=== PATIENT | female | born 1945 | race Caucasian/White ===

== ENCOUNTER → 2018-07-28 10:20 | Outpatient (CLI) | payer OTHER, SELFPAY ==
[2018-07-28 12:05] LABS: Add Manual Diff / Slide Review NO; Basophils Percent Auto 0.4 % (0-2); Eosinophils Percent Auto 2.2 % (2-4); Hematocrit 37.4 % (36-46); Hemoglobin 12.1 g/dL (12.0-16.0); Lymphocytes Percent Auto 25.2 % (25-40); Mean Corpuscular HGB Conc 32.3 % (30-36); Mean Corpuscular Volume 86.6 fL (80-100); Monocytes Percent Auto 10.3 % (3-14); Neutrophils Absolute Auto 3600 /uL (1500-7000); Neutrophils Percent Auto 61.9 % (50-75); Platelet Count 254 X10^3/uL (150-400); Red Blood Cell Count 4.32 X10^6/uL (4.0-5.2); Red Cell Distribution Width 13.4 % (11.6-14.8); White Blood Cell Count 5.7 X10^3/uL (4.5-11.0)
[2018-07-28 13:17] LABS: Alanine Aminotransferase 29 IU/L (9-52); Albumin 4.1 g/dL (3.5-5.0); Albumin Globulin Ratio 1.5 (1.0-2.8); Alkaline Phosphatase 103 U/L (38-126); Aspartate Aminotransferase 19 IU/L (14-36); BUN Creatinine Ratio 17.5 (6-22); Bilirubin Total 0.7 mg/dL (0.2-1.3); Blood Urea Nitrogen 14 mg/dL (7-17); Calcium 9.2 mg/dL (8.4-10.2); Carbon Dioxide 25 mmol/L (22-32); Chloride 105 mmol/L (98-107); Cholesterol 150 mg/dL (140-199); Estimated Glomerular Filt Rate > 60.0 mL/min (>60); Globulin 2.7 g/dL (1.7-4.1); Glucose 87 mg/dL (80-110); HDL Cholesterol 61 mg/dL (40-60); HEMOLYSIS < 15 (0-50); LDL Cholesterol Calculated 74 mg/dL (<100); Potassium 4.4 mmol/L (3.4-5.1); Sodium 144 mmol/L (137-145); Total Protein 6.8 g/dL (6.3-8.2); Triglycerides 75 mg/dL (35-150)
[2018-07-28 15:17] LABS: TSH w/ Reflex to FT4 1.24 uIU/mL (0.47-4.68)
== END ==
PROVIDERS: Family Provider Family Medicine; PCP Family Medicine; Visit Provider Family Medicine
DX: E03.9 Hypothyroidism, unspecified (principal)
CPT/HCPCS: 36415; 80053; 80061; 84443; 85025

== ENCOUNTER → 2018-08-10 10:05 | Outpatient (CLI) | payer OTHER, SELFPAY ==
--- NOTE | 2018-08-10 10:06 | DI.RAD.S_ITS ---
PROCEDURE: FL BARIUM SWALLOW INDICATIONS: dysphagia COMPARISON: None. FINDINGS: Function: There is normal esophageal peristalsis proximally but mild to moderate tertiary contractions were seen in the distal third of the esophagus. There was mild spontaneous and elicited gastroesophageal reflux. There is abnormally delayed transit of a calibrated barium tablet through the esophagus into the stomach, remaining impacted at a point of relative stricture at the distal esophagus above a small to moderate sized sliding hiatal hernia. Morphology: Air-contrast images demonstrate normal mucosal morphology, without evidence of nodularity masses at the distal esophagus. Single contrast views show a definite fixed distal esophageal stricture, site of barium tablet impaction, and no extrinsic mass effects or diverticula. Limited images of the stomach demonstrate normal appearance. IMPRESSION: There is a small to moderate sized sliding hiatal hernia with associated spontaneous and elicited gastroesophageal reflux relatively mild in severity. This is associated with presence of a fixed distal esophageal stricture, mild in severity, which resulted in impaction of a 13 mm calibrated barium tablet for over 5 minutes during observation at the termination of the study. Endoscopy is recommended both for consideration of balloon dilatation of the distal esophageal stricture and to more accurately assess for dysplasia or metaplasia. Dictated by: Mian Jorge M.D. on 08/10/2018 at 11:24 Approved by: Mian Jorge M.D. on 08/10/2018 at 11:27
== END ==
PROVIDERS: PCP Family Medicine; Visit Provider Family Medicine
DX: K22.2 Esophageal obstruction (principal); R13.10 Dysphagia, unspecified; K21.9 Gastro-esophageal reflux disease without esophagitis; K44.9 Diaphragmatic hernia without obstruction or gangrene
CPT/HCPCS: 74220

== ENCOUNTER → 2018-09-26 10:57 | Outpatient (CLI) | payer OTHER, SELFPAY ==
--- NOTE | 2018-09-26 | DI.MG.S_ITS ---
BILATERAL DIGITAL SCREENING MAMMOGRAM 3D/2D WITH CAD: 09/26/2018 CLINICAL: Routine screening. Family history of breast cancer. Comparison is made to exams dated: 09/23/2017 mammogram, 09/13/2017 mammogram, and 08/13/2016 mammogram - [facility]. There are scattered fibroglandular elements in both breasts. Current study was also evaluated with a Computer Aided Detection (CAD) system. There is a 7 mm oval mass in the right breast anterior depth central to the nipple seen on the mediolateral oblique view only. No other significant masses, calcifications, or other findings are seen in either breast. IMPRESSION: INCOMPLETE: NEEDS ADDITIONAL IMAGING EVALUATION The 7 mm oval mass in the right breast is indeterminate. A diagnostic mammogram and ultrasound is recommended. This exam was interpreted at Station ID: [id number]. NOTE: For mammograms, a report in lay terms will be sent to the patient. Approximately 15% of breast malignancies will not be visualized mammographically. In the management of a palpable breast mass, a negative mammogram must not discourage biopsy of a clinically suspicious lesion. Electronically Signed By: Nadia perales/jaydon:09/28/2018 09:40:37 letter sent: Additional Imaging Needed ACR BI-RADS Category 0: Incomplete 3340F
== END ==
PROVIDERS: PCP Family Medicine; Visit Provider Family Medicine
DX: Z12.31 Encounter for screening mammogram for malignant neoplasm of breast (principal); Z80.3 Family history of malignant neoplasm of breast
CPT/HCPCS: 77063; 77067

== ENCOUNTER 2018-09-27 07:50 | Day surgery (SDC) | payer OTHER, SELFPAY ==
[2018-09-27] VITALS (7 sets, daily range): BP systolic 100–124; BP diastolic 64–74; PULSE 71–88; RESP 12–17; TEMP 36.4–36.7; O2SAT 92–98; BMI 31.2
--- NOTE | 2018-09-27 | PATH_ITS ---
[facility] Accession Number: [id number] . 01 Material submitted: . PART A: ANTRUM BIOPSIES PART B: GASTRIC MUCOSA BELOW THE GE JUNCTION PART C: SCHATZKI RING BIOPSIES . 02 Diagnosis: A. Stomach, Antrum, Biopsies: Helicobacter pylori gastritis. Negative for intestinal metaplasia. Negative for dysplasia and malignancy. . B. Stomach, Mucosa Below GE Junction, Biopsy: Squamocolumnar junctional mucosa and columnar mucosa with chronic active inflammation and intestinal metaplasia. Negative for dysplasia and malignancy. . C. Esophagus, Biopsies: Squamous mucosa with erosion and reflux-related changes. Intraepithelial eosinophils are not increased. Negative for dysplasia and malignancy. [facility]/09/28/2018 . 02 Comment: B. The presence of inestinal metaplasia could be compatible with Wu's esophagus, in the appropriate endoscopic setting. . 02 Electronically signed: . Dari Valencia MD, Pathologist NPI- [id number] . 01 Gross description: . Received three formalin-filled containers each labeled with the patient's name. . A. In a container labeled antrum are four 0.1 to 0.4 cm portions of tissue. Entirely submitted in cassette A. B. In a container labeled gastric mucosa below the GE junction are four less than 0.1 to 0.3 cm portions of tissue. Entirely submitted in cassette B. C. In a container labeled Schatzki ring are three less than 0.1 to 0.2 cm portions of tissue. Entirely submitted in cassette C. ([facility]:[id number]) /[facility] . 02 Pathologist provided ICD-10: R10.9, B96.81 . 02 CPT . 377847, 079635, 010542 Performed at: [address] [place] [address] [address], [place], [place] [id number] MD Hilario Adame MD Phone: [phone] Performed at: [id number] [place] [id number] MD Dari Valencia MD Phone: [phone]
[2018-09-27] MEDS: SODIUM CHLORIDE 0.9% 1,000 ML 200 ML IV (08:20)
--- NOTE | 2018-09-27 09:00 | PM.PREOP ---
Pre-operative Note Interval Note History & Physical reviewed/Exam performed by Physician: Yes Changes to H&P: No ASA Class (for procedural sedation): I
[2018-09-27] MEDS: TETRACAINE/BENZOCAINE/BUTAMBEN (CETACAINE) BOTTLE 1 SPRAY TOP (09:06)
[2018-09-27] MEDS: LIDOCAINE 4% SOLN 50 ML 20 ML TOP (09:07)
--- NOTE | 2018-09-27 09:25 | SUR.OPER ---
Balloon dilation up to 15mm
--- NOTE | 2018-09-27 09:29 | PM.OP.ENDO ---
Operative Date/Time/Diagnoses Date of procedure: 09/27/18 Time of procedure: 09:29 Pre-op diagnosis: Abnormal upper GI with stricture of the distal esophagus Post-op diagnosis: same (With a Schatzki ring. Multiple antral and healing duodenal ulcers. Hiatal hernia.) Procedure & Clinicians Study performed: EGD with cold biopsy and through the scope balloon dilatation to 15 mm diameter Same procedure as scheduled: Yes Indications: Abnormal upper GI Surgeon: Bandar Leon Procedure Notes SCOAP/Timeout: Performed Procedure in detail: The patient was placed in left lateral decubitus position after having topical anesthetic applied to oropharynx. Bite block was inserted she was sedated. Scope was advanced through the bite block into the esophagus. The esophagus was somewhat tortuous especially distal. There was an obvious Schatzki ring with some narrowing but the scope passed easily through it. There was a hiatal hernia about 3 cm to 4 cm in length. There was a small linear ulceration in the gastric wall just below this. Additionally, there were multiple ulcerations in the gastric antrum that appeared to be healing. The pyloric channel was patent. There was a very superficial ulceration that appeared to be healing in the duodenal bulb. The 2nd 3rd and 4th parts of the duodenum were unremarkable. The scope was brought back into the stomach and retroflexed. The hiatal hernia was poorly visible from below. Multiple biopsies were taken of the antrum to include 1 or 2 the healing ulcers. Biopsies were then taken of the inflamed areas below the GE junction. Finally biopsies were taken of the Schatzki ring. This was at the GE junction located at about 3 3 cm from the incisors. A 12-15 mm balloon was then passed through the scope and the narrowing dilated. The 12 mm did not engage the fabian but the 13.5 and the 15 did. I chose not to dilate further. The scope was removed and the patient tolerated the procedure well. Scope withdrawal time: Not applicable Sedation minutes: 21 Findings: duodenal ulcer, gastric ulcer and hiatal hernia Specimen(s): other (Antral, gastric below the GE junction, I had GE junction at the Schatzki ring.) Complications: none Recommendations: Start medication(s) (Proton pump inhibitor) Follow up: weeks (2-4) Disposition: PACU
[2018-09-27] MEDS: MIDAZOLAM 5 MG/5 ML VIAL IV (09:30)
--- NOTE | 2018-09-27 09:57 | SUR.PHASEI ---
stable pacu stay
--- NOTE | 2018-09-27 10:38 | SUR.PHASEII ---
Jean Claude brought in, d/c instructions discussed with both, both voiced an understanding, pt left when ready and left in stable condition.
== END 2018-09-27 10:40 | disposition home or self-care (01) ==
PROVIDERS: PCP Family Medicine; Visit Provider Specialist
PROC: 0DJ08ZZ Inspection of Upper Intestinal Tract, Via Natural or Artificial Opening Endoscopic (ICD-10-PCS; CPT 43235; principal; 2018-09-27 08:45)
DX: K22.2 Esophageal obstruction (principal); K44.9 Diaphragmatic hernia without obstruction or gangrene; K25.9 Gastric ulcer, unspecified as acute or chronic, without hemorrhage or perforation; K26.9 Duodenal ulcer, unspecified as acute or chronic, without hemorrhage or perforation; K29.70 Gastritis, unspecified, without bleeding; B96.81 Helicobacter pylori [H. pylori] as the cause of diseases classified elsewhere
CPT/HCPCS: 43249; 43239; 99152; J2250

== ENCOUNTER → 2018-10-11 13:03 | Outpatient (CLI) | payer OTHER, SELFPAY ==
--- NOTE | 2018-10-11 13:05 | DI.MG.S_ITS ---
UNILATERAL RIGHT DIGITAL DIAGNOSTIC MAMMOGRAM 3D/2D WITH ADDITIONAL VIEWS: 10/11/2018 CLINICAL: Additional evaluation requested from prior study. Family history of breast cancer. Comparison is made to exams dated: 09/26/2018 mammogram, 09/23/2017 mammogram, 09/13/2017 mammogram, and 08/13/2016 mammogram - [facility]. There are scattered fibroglandular elements in right breast. The 7 mm oval asymmetry in the right breast anterior depth central to the nipple seen on the mediolateral oblique view only is no longer seen. No other significant masses or calcifications are seen in the breast. IMPRESSION: There is no mammographic evidence of malignancy. A 1 year screening mammogram is recommended. This exam was interpreted at Station ID: [id number]. NOTE: For mammograms, a report in lay terms will be sent to the patient. Approximately 15% of breast malignancies will not be visualized mammographically. In the management of a palpable breast mass, a negative mammogram must not discourage biopsy of a clinically suspicious lesion. Electronically Signed By: Steffi rader/:10/11/2018 13:45:54 letter sent: Normal Exam ACR BI-RADS Category 2: Benign Finding(s) 3342F
== END ==
PROVIDERS: PCP Family Medicine; Visit Provider Family Medicine
DX: R92.8 Other abnormal and inconclusive findings on diagnostic imaging of breast (principal); Z80.3 Family history of malignant neoplasm of breast
CPT/HCPCS: 77065; G0279

== ENCOUNTER 2018-12-15 11:23 | Emergency (ER) | payer OTHER, SELFPAY ==
[2018-12-15 11:32] VITALS: BP 133/79; PULSE 74; RESP 16; TEMP 36.4; O2SAT 98
--- NOTE | 2018-12-15 12:15 | ED.EXTPRO ---
HPI - Extremity Problem <SAUD Solorio-BC - Last Filed: 12/15/18 13:06> General Chief complaint: Extremity Problem,Nontraumatic Stated complaint: right leg is swollen a little bit Time Seen by Provider: 12/15/18 12:05 Source: patient and family Mode of arrival: ambulatory Limitations: no limitations History of Present Illness HPI Narrative: The patient is a 73-year-old female nonsmoker presents with her who presents with a chief complaint of right leg pain and swelling for the past week. She states it is bad enough that somebody in yoga class noticed it today and told her she should be concerned about a blood clot. She denies any trauma, recent surgical procedures other than endoscope, history of blood clots, recent travel or immobility. She does have a history of hypothyroid GERD and hyperlipidemia. She denies any shortness of breath, chest pain, nausea vomiting diarrhea abdominal pain. Related Data Home Medications Medication Instructions Recorded Confirmed calcium citrate-vitamin D3 1,260 tab PO DAILY #0 04/12/13 12/15/18 [Calcitrate-Vitamin D] Previous Rx's Medication Instructions Recorded atorvastatin 10 mg tablet 10 mg PO HS #90 tab 08/05/18 levothyroxine 50 mcg tablet 50 mcg PO QDAY@0600 #90 tab 08/05/18 omeprazole 20 mg PO BID #60 cap 09/27/18 Allergies Allergy/AdvReac Type Severity Reaction Status Date / Time No Known Drug Allergies Allergy Verified 12/15/18 12:20 Review of Systems <AMADEO Solorio - Last Filed: 12/15/18 13:06> Review of Systems GENERAL: Denies chills, fatigue, malaise, fever, sweats. HEENT: Denies sinus pain, ear pain, sore throat, difficulty swallowing, dizziness. RESPIRATORY: Denies dyspnea, cough, wheezing, hemoptysis, sputum. CARDIOVASCULAR: Denies chest pain, palpitations, orthopnea, edema, GASTROINTESTINAL: Denies nausea, vomiting, abdominal pain, diarrhea, constipation, melena. : Denies dysuria, frequency, incontinence, hematuria, urinary retention. MUSCULOSKELETAL: See HPI SKIN: See HPI NEUROLOGIC: Denies weakness, headache, numbness, change in speech, confusion, seizures, incoordination. PSYCHIATRIC: No concerning psychosocial issues. 12 point review of systems is negative except for those stated above PFSH <HE Solorio - Last Filed: 12/15/18 13:06> Social History marital status: household members: spouse Smoking Status: Never smoker alcohol intake: current Exam <HE Solorio - Last Filed: 12/15/18 13:06> Narrative Exam Narrative: GENERAL: This is a well-nourished, well-developed patient, lying on stretcher in no acute distress HEAD: Atraumatic. Normocephalic. No temporal or scalp tenderness. EYES: Pupils equal round and reactive. Extraocular motions intact. No scleral icterus. No injection or drainage. CARDIOVASCULAR: Regular rate and rhythm RESPIRATORY: Clear to auscultation. Breath sounds equal bilaterally. No wheezes, rales, or rhonchi. No cough. No increased respiratory effort. GASTROINTESTINAL: Abdomen soft, non-tender, nondistended. No hepato-splenomegaly, or palpable masses. No guarding. EXTREMITIES: General pain to palpation right calf. Positive pedal pulses right foot. Slight generalized edema right lower leg. BACK: Nontender without deformity or crepitance. No flank tenderness. NEURO: AOx3. SKIN: No erythema ecchymosis or wound noted right leg. Initial Vital Signs Initial Vital Signs: Vital Signs Temperature 97.6 F 12/15/18 11:32 Pulse Rate 74 12/15/18 11:32 Respiratory Rate 16 12/15/18 11:32 Blood Pressure 133/79 12/15/18 11:32 Pulse Oximetry 98 12/15/18 11:32 <Dontae Goldman DO - Last Filed: 12/15/18 18:29> Initial Vital Signs Initial Vital Signs: Vital Signs Temperature 97.6 F 12/15/18 11:32 Pulse Rate 74 12/15/18 11:32 Respiratory Rate 16 12/15/18 11:32 Blood Pressure 133/79 12/15/18 11:32 Pulse Oximetry 98 12/15/18 11:32 Course <HE Solorio - Last Filed: 12/15/18 13:06> Orders Ordered: ED Orders 12/15/18 12:14 US periph venous low extrem rt Stat Vital Signs - 8 hr 12/15/18 11:32 12/15/18 13:12 Temperature 97.6 F Pulse Rate 74 71 Respiratory Rate 16 17 Blood Pressure 133/79 122/73 Pulse Oximetry 98 98 <Dontae Goldman DO - Last Filed: 12/15/18 18:29> Orders Ordered: ED Orders 12/15/18 12:14 US periph venous low extrem rt Stat Vital Signs - 8 hr 12/15/18 11:32 12/15/18 13:12 Temperature 97.6 F Pulse Rate 74 71 Respiratory Rate 16 17 Blood Pressure 133/79 122/73 Pulse Oximetry 98 98 MDM - Extremity (Nontraumatic) <HE Solorio - Last Filed: 12/15/18 13:06> Imaging Data Venous US: Radiologist's impression: Aileen Mcleod 73 F [address] [address] Ultrasound Report Signed Patient: Aileen Mcleod LMR#: [id number] : 1945cct:[id number] Age/Sex: 73 / FDate of Service: 12/15/18 Loc: ED Accession Number: [id number] Procedure: US periph venous low extrem rt Ordering Provider: Stacie Castillo PROCEDURE: US PERIPH VENOUS LOW EXTREM RT INDICATIONS: RIGHT LEG EDEMA TECHNIQUE: Real-time imaging, as well as color and pulse Doppler interrogation, were performed of the lower extremity deep veins from the inguinal ligament to the popliteal fossa. COMPARISON: None. FINDINGS: The common femoral, femoral and popliteal veins are normally compressible, and free of intraluminal thrombus. Color and pulse Doppler demonstrate normal phasic intraluminal flow. There is normal augmentation response to distal compression maneuver. IMPRESSION: No deep vein thrombosis of the right lower extremity. Dictated by: Steffi Shea M.D. on 12/15/2018 at 12:43 Approved by: Steffi Shea M.D. on 12/15/2018 at 12:43 [facility] Narrative Medical decision making narrative: The patient is a 73-year-old female presents with isolated right lower leg swelling and pain. She is concerned about a blood clot. She has low risk factors and a negative ultrasound. We discussed pros and cons of x-ray, which she does not think his partner at this point time given no trauma. I discussed at length return precautions including chest pain and shortness of breath. I encouraged the patient to follow up with primary care provider especially if worsening or no improvement. Patient and had questions or concerns upon discharge. Discharge Plan Departure Patient Disposition: Home Clinical Impression: Leg pain, right Discharge Date/Time: 12/15/18 13:13 Interventions: ED Discharge Assessment Last Done: 12/15/18 13:12 Instructions: How To Perform RICE (Rest, Ice, Compress, Elevate), DI for Leg Pain Activity Restrictions/Additional Instructions: Your ultrasound shows no blood clot. Please follow up with primary care provider if he continued to have pain and swelling in her leg. Please try [id number] pain medications as needed as well as rest ice compression elevation. I would take a few days off of yoga to see if that helps. Try elevating your legs as needed. Please follow up with primary care provider in a few days. Please come back to emergency department for any acute concerns that his chest pain, shortness of breath, concern of stroke and heart attack. Prescriptions: No Action calcium citrate-vitamin D3 [Calcitrate-Vitamin D] 315-250 mg-unit Tablet 1,260 tab PO DAILY Qty: 0 RF: 0 levothyroxine [Synthroid] 50 mcg tablet 50 mcg PO QDAY@0600 Qty: 90 RF: 0 atorvastatin [Lipitor] 10 mg tablet 10 mg PO HS Qty: 90 RF: 3 omeprazole 20 mg capsule,delayed release(DR/EC) 20 mg PO BID Qty: 60 RF: 4 Referrals: Nestor Cornelius MD [Primary Care Provider] - <Dontae Goldman DO - Last Filed: 12/15/18 18:29> [facility]w Attestation: I was immediately available in the department for consultation. Documentation has been reviewed. I agree with assessment and plan. l
[2018-12-15 13:12] VITALS: BP 122/73; PULSE 71; RESP 17; O2SAT 98
== END 2018-12-15 13:13 | disposition home or self-care (01) ==
PROVIDERS: Emergency Provider Nurse Practitioner Family; PCP Family Medicine
DX: M79.604 Pain in right leg (principal); R60.9 Edema, unspecified
CPT/HCPCS: 93971; 99282; 99283

== ENCOUNTER 2019-01-10 07:29 | Day surgery (SDC) | payer OTHER, SELFPAY ==
--- NOTE | 2019-01-10 | PATH_ITS ---
[facility] Accession Number: [id number] . 01 Material submitted: . PART A: hernia - BIOPSY IN HIATAL HERNIA PART B: esophagus, E-G Junction - GE JUNCTION . 02 Diagnosis: A. Hiatal Hernia, Biopsy: Squamocolumnar junctional mucosa with mild chronic inflammation. Negative for intestinal metaplasia. Negative for dysplasia and malignancy. . B. Gastroesophageal Junction, Biopsy: Squamocolumnar junctional mucosa with specialized intestinal metaplasia, consistent with Wu's esophagus. Negative for dysplasia and malignancy. [facility]/01/11/2019 . 02 Electronically signed: . Dari Valencia MD, Pathologist NPI- [id number] . 01 Gross description: . Part A: BIOPSY IN HIATAL HERNIA: Received in formalin are 3 fragment(s) of briceno, soft tissue measuring 0.1 x 0.1 x 0.1 cm to 0.2 x 0.2 x 0.2 cm which is entirely submitted and submitted entirely in 1 cassette(s) Part B: GE JUNCTION: Received in formalin are 3 fragment(s) of briceno, soft tissue measuring 0.1 x 0.1 x 0.1 cm to 0.3 x 0.2 x 0.2 cm which is entirely submitted and submitted entirely in 1 cassette(s) /[facility] /[facility] . 02 Pathologist provided ICD-10: K22.70 . 02 CPT . 220742, [id number] Performed at: [facility] [address], [place], [place] [id number] MD Hilario Adame MD Phone: [phone] Performed at: [facility] [place] [address] [place], [place] [id number] MD Dari Valencia MD Phone: [phone]
[2019-01-10 07:52] VITALS: BP 131/78; PULSE 85; RESP 15; TEMP 36.6; O2SAT 98; BMI 31.1
[2019-01-10] MEDS: SODIUM CHLORIDE 0.9% 1,000 ML 200 ML IV (08:09)
--- NOTE | 2019-01-10 08:45 | PM.HP.1 ---
History of Present Illness Date Patient Seen: 01/10/19 Time Patient Seen: 08:46 Chief complaint: [id number] Narrative: The patient is a woman who has had gastric ulcers diagnosed in the past. She is here to make sure those ulcers have healed. She has been taking omeprazole twice a day. Patient History Medical History GERD (gastroesophageal reflux disease) (Acute) Hyperlipidemia (Acute) Hypothyroidism (Chronic ~1984) Kidney stones (Chronic ~2002) Osteopenia (Chronic) Surgical History Anesthesia (Resolved) History of lithotripsy (~2002) History of thyroidectomy (~1984) Status post hysterectomy (~1988) Family History Father Heart disease Hypertension Grandmother Breast cancer Mother Cancer Diabetes mellitus Breast cancer Grandfather No problems noted. Social History marital status: household members: spouse Smoking Status: Never smoker alcohol intake: current Family & Social History Family History Father Heart disease Hypertension Grandmother Breast cancer Mother Cancer Diabetes mellitus Breast cancer Grandfather No problems noted. Social History: household members spouse Tobacco & Substance use: Smoking Status Never smoker alcohol intake current alcohol intake frequency holiday/special occasion Substance Use Type does not use Meds Home Medications Medication Instructions Recorded Confirmed Type calcium citrate-vitamin D3 1,260 tab PO DAILY #0 04/12/13 01/10/19 History [Calcitrate-Vitamin D] atorvastatin 10 mg tablet 10 mg PO HS #90 tab 08/05/18 01/10/19 Rx levothyroxine 50 mcg tablet 50 mcg PO QDAY@0600 #90 tab 08/05/18 01/10/19 Rx omeprazole 20 mg PO BID #60 cap 09/27/18 01/10/19 Rx Allergies Allergy/AdvReac Type Severity Reaction Status Date / Time No Known Drug Allergies Allergy Verified 12/15/18 12:20 Review of Systems Review of Systems All systems reviewed & are unremarkable except as noted in HPI and below Gastrointestinal Comments: Chronic reflux disease Endocrine Comments: Hypothyroid Exam Vital Signs (past 8 hours): - 01/10/19 07:52 Temperature 97.9 F Pulse Rate 85 Respiratory Rate 15 Blood Pressure 131/78 Pulse Oximetry 98 Oxygen Delivery Method Room Air Narrative Exam Narrative: Pleasant cooperative patient no apparent distress. Lungs are clear to auscultation. No rales or rhonchi. Heart regular rate and rhythm no murmur gallop. Abdomen is soft nontender without mass. No obvious hernias. Patient is alert and oriented x3. Assessment & Plan Assessment & Plan narrative: Patient for an EGD. I discussed the procedure with her. Risks of bleeding and perforation discussed. She appears to understand wishes to proceed
--- NOTE | 2019-01-10 08:47 | PM.PREOP ---
Pre-operative Note Interval Note History & Physical reviewed/Exam performed by Physician: Yes Changes to H&P: No ASA Class (for procedural sedation): II
[2019-01-10] MEDS: LIDOCAINE 4% SOLN 50 ML 20 ML TOP (09:13)
--- NOTE | 2019-01-10 09:13 | PM.OP.ENDO ---
Operative Date/Time/Diagnoses Date of procedure: 01/10/19 Time of procedure: 09:13 Pre-op diagnosis: History of gastric ulcers Post-op diagnosis: same (Ulcers appeared to be healed. Patient has evidence of Wu's esophagus. Biopsies taken.) Procedure & Clinicians Study performed: EGD with cold biopsy Same procedure as scheduled: Yes Indications: History of gastric ulcers. Post treatment Surgeon: Bandar Leon Procedure Notes SCOAP/Timeout: Performed Procedure in detail: The patient had topical anesthetic applied to oropharynx. She was placed in left lateral decubitus position and underwent IV sedation directed by the surgeon consisting of fentanyl and Versed. A bite block was inserted and the scope was advanced through it into the esophagus. The esophagus was unremarkable. GE junction was noted at 32 cm from the incisors. There was a hiatal hernia.. The stomach insufflated well. There were no lesions seen in the body, antrum or at the incisura. The pyloric channel was patent. The duodenum was unremarkable to the 4th part. The scope was brought back into the stomach and retroflexed. The proximal stomach normal except for visible hiatal hernia. The scope was straightened and brought out through the esophagus again. The hiatal hernia measured about 3 cm. No lesions were seen In the hernia itself. However there was evidence at the GE junction of Wu's esophagus with red tongues of tissue coming above the GE junction. Just below the GE junction there were flaps of tissue which I biopsied. Then I biopsied the area at the junction including some of the streaks of red tissue. The scope was removed and the patient tolerated the procedure well. Scope withdrawal time: Not applicable Sedation minutes: 13 Findings: Wu's esophagus (Possible. Pending biopsy results.), gastric ulcer (Healed. No evidence of persistence.) and other findings Specimen(s): other (Biopsies below and at the GE junction) Complications: none Recommendations: Stop medication(s) (Omeprazole unless you have heartburn/reflux disease. Then you should go to once a day.) Follow up: as needed Disposition: PACU
[2019-01-10] MEDS: MIDAZOLAM 5 MG/5 ML VIAL IV (09:14)
[2019-01-10] MEDS: TETRACAINE/BENZOCAINE/BUTAMBEN (CETACAINE) BOTTLE 1 SPRAY TOP (09:14)
[2019-01-10] MEDS: fentaNYL 250 MCG/5 ML INJ IV (09:15)
[2019-01-10 09:16] VITALS: BP 120/73; PULSE 80; RESP 18; TEMP 36.2; O2SAT 96
[2019-01-10 09:20] VITALS: BP 127/76; PULSE 79; RESP 16; O2SAT 97
--- NOTE | 2019-01-10 09:24 | SUR.PHASEII ---
HOB elevated, Ice chips given/tolerated
[2019-01-10 09:26] VITALS: BP 118/98; PULSE 85; RESP 16; TEMP 37; O2SAT 99
--- NOTE | 2019-01-10 09:27 | SUR.PHASEI ---
Stable, preparing to transfer to Phase Ii
[2019-01-10 09:33] VITALS: BP 127/79; PULSE 77; RESP 16; TEMP 37; O2SAT 99
[2019-01-10 09:52] VITALS: BP 117/75; PULSE 71; RESP 17; TEMP 36.6; O2SAT 99
== END 2019-01-10 10:03 | disposition home or self-care (01) ==
PROVIDERS: PCP Family Medicine; Visit Provider Specialist
PROC: 0DJ08ZZ Inspection of Upper Intestinal Tract, Via Natural or Artificial Opening Endoscopic (ICD-10-PCS; CPT 43235; principal; 2019-01-10 08:45)
DX: K22.70 Barrett's esophagus without dysplasia (principal); K21.9 Gastro-esophageal reflux disease without esophagitis; E78.5 Hyperlipidemia, unspecified; E03.9 Hypothyroidism, unspecified
CPT/HCPCS: 43239; 99152; J2250; J3010